=== PATIENT | female | born 1970 | race Caucasian/White ===

== ENCOUNTER 2023-04-26 18:23 | Observation (INO) ==
[2023-04-26 19:25] LABS: BILIRUBIN,URINE NEGATIVE (NEGATIVE); BLOOD/HEMOGLOBIN,URINE 1+ (NEGATIVE); GLUCOSE, URINE NEGATIVE (NEGATIVE); KETONES,URINE 4+ (NEGATIVE); LEUKOCYTE ESTERASE ,URINE NEGATIVE (NEGATIVE); NITRITES,URINE NEGATIVE (NEGATIVE); PH,URINE 6.5 (5.0 - 8.0); PROTEIN,URINE 2+ (NEGATIVE); UROBILINOGEN,URINE NORMAL (NORMAL)
[2023-04-26 19:32] LABS: APPEARANCE,URINE CLEAR (CLEAR); COLOR,URINE DARK YELLOW (YELLOW)
[2023-04-26 19:33] LABS: BACTERIA,URINE TRACE /HPF (NEGATIVE); RBC,URINE 0-2 /HPF (0-3); SQUAMOUS EPITHELIAL CELL,UR MODERATE /HPF (NEGATIVE)
--- NOTE | 2023-04-26 20:09 | DR.EXTPAIN ---
HPI Time seen Time Seen by Provider: 04/26/23 20:08 PCP Primary Care Physician: SHAHID LEZAMA Complaint/Symptoms Chief Complaint:: PT IN ED VIA WHEELCHAIR WITH C/O SHARP PAINS RIGHT LOWER SIDE. PT STATES PAIN STATES AT NAVEL AND RUNS TO RIGHT LOWER ABD. COVID-19 Coronavirus risk:travel/contact w/high risk person: No Has patient experienced Coronavirus symptoms: No Nurses notes reviewed Nurses Notes Review: Yes Source History Provided: Patient Mode of arrival Mode of Arrival: Wheelchair Timing Onset of Chief Complaint: 04/26/23 Context History of: None Associated signs and symptoms Associated Signs and Symptoms: Nausea PMH PMH Past Medical History: No Past Surgical History: Yes Surgical History: Hysterectomy Family History History of Family Medical Conditions: Yes Family Medical History: Diabetes Mellitus, [place], Coronary Artery Disease and Hypertension Social History Does patient currently use any type of tobacco product: No Have you used tobacco products in the last 12 months: No Type of Tobacco Use: None Does any household member use tobacco: No Alcohol Use: Occasionally Do you use any recreational Drugs:: No Lives With: Family Lives Where: Home Travel Risk Coronavirus risk:travel/contact w/high risk person: No Has patient experienced Coronavirus symptoms: No Infectious screening In the last 2 months have you had wt loss of >10#?: NO Have you had fever, night sweats or hemotysis?: No Have you traveled outside the country in the last 6 months?: No Isolation: Standard ROS Review of Systems Gastrointestinal/Abdominal: See HPI, Abdominal Pain and Nausea PE Vital Signs Vitals: Vital Signs Temperature 98.1 F Pulse Rate [Radial] 71 Pulse Rate 87 Respiratory Rate 20 Respiratory Rate 20 Respiratory Rate 20 Blood Pressure [Left Arm] 133/71 Blood Pressure 133/80 O2 Sat by Pulse Oximetry 99 O2 Sat by Pulse Oximetry 99 General Limitations: No Limitations General Appearance: Alert and In No Apparent Distress Head Head Exam: Normal Inspection Eyes Eye exam: Normal Appearance, PERRL and EOMI ENT ENT Exam: Normal Exam Neck Neck Exam: Normal Inspection Chest Chest Inspection: Normal Inspection Respiratory Respiratory Exam: Normal Lung Sounds Bilat Cardiovascular Cardiovascular Exam: Regular Rate Abdominal Exam Abdominal Exam: Normal Inspection, Normal Bowel Sounds and Soft Extremities Extremities Exam: Normal Inspection Back Back Exam: Normal Inspection Neurological Neurological Exam: Alert, Oriented X3, CN II-XII Intact, Normal Gait and Reflexes Normal Psychiatric Psychiatric Exam: Normal Affect and Normal Mood Skin Skin Exam: Warm, Dry and Intact COURSE Treatment Treatment: Labs, CT, Morphine, Zofran, Zosyn Reevaluation 1st: Improved ROR Labs Reviewed Laboratory Results Reviewed?: Yes 04/26/23 20:20 04/26/23 20:20 Laboratory: WBC 13.6 X10^3/uL (3.6-10.0) H 04/26/23 20:20 RBC 4.77 X10^6/uL (3.5-5.4) 04/26/23 20:20 Hgb 14.7 g/dL (12.0-16.0) 04/26/23 20:20 Hct 43.0 % (36.0-47.0) 04/26/23 20:20 MCV 90.2 fL (80.0-100.0) 04/26/23 20:20 MCH 30.9 pg (27.0-34.0) 04/26/23 20:20 MCHC 34.3 g/dL (33.0-35.0) 04/26/23 20:20 RDW 13.1 % (11.6-16.5) 04/26/23 20:20 Plt Count 185 X10^3/uL (150.0-450.0) 04/26/23 20:20 MPV 9.4 fL (7.4-11.0) 04/26/23 20:20 Neut % (Auto) 83.3 % (42.0-75.0) H 04/26/23 20:20 Lymph % (Auto) 8.1 % (21.0-51.0) L 04/26/23 20:20 [place] % (Auto) 8.3 % (0.0-13.0) 04/26/23 20:20 Eos % (Auto) 0.1 % (0.9-2.9) L 04/26/23 20:20 Baso % (Auto) 0.2 % (0.2-1.0) 04/26/23 20:20 Neut # (Auto) 11.3 x10^3/uL (2.2-4.8) H 04/26/23 20:20 Lymph # (Auto) 1.1 X10^3/uL (1.3-2.9) L 04/26/23 20:20 [place] # (Auto) 1.1 x10^3/uL (0.3-0.8) H 04/26/23 20:20 Eos # (Auto) 0.0 x10^3/uL (0.0-0.2) 04/26/23 20:20 Baso # (Auto) 0.0 X10^3/uL (0.0-0.1) 04/26/23 20:20 Absolute Nucleated RBC 0.1 /100WBC 04/26/23 20:20 Sodium 132 mmol/L (136-145) L 04/26/23 20:20 Corrected Sodium 132 mmol/L (136-145) L 04/26/23 20:20 Potassium 4.1 mmol/L (3.5-5.1) 04/26/23 20:20 Chloride 98 mmol/L (98-107) 04/26/23 20:20 Carbon Dioxide 27.5 mmol/L (21-32) 04/26/23 20:20 BUN 6 mg/dL (7-18) L 04/26/23 20:20 Creatinine 0.65 mg/dL (0.55-1.02) 04/26/23 20:20 Est GFR (MDRD) Af Amer > 60 (>60) 04/26/23 20:20 Est GFR (MDRD) Non-Af > 60 (>60) 04/26/23 20:20 Glucose 115 mg/dL (65-99) H 04/26/23 20:20 Calcium 8.4 mg/dL (8.5-10.1) L 04/26/23 20:20 Corrected Calcium TNP 04/26/23 20:20 Total Bilirubin 1.30 mg/dL (0.2-1.0) H 04/26/23 20:20 AST 39 Units/L (15-37) H 04/26/23 20:20 ALT 27 Units/L (12-78) 04/26/23 20:20 Alkaline Phosphatase 77 Units/L (46-116) 04/26/23 20:20 Total Protein 7.6 g/dL (6.4-8.2) 04/26/23 20:20 Albumin 3.7 g/dL (3.4-5.0) 04/26/23 20:20 Globulin 3.9 g/dL (2.5-4.5) 04/26/23 20:20 Albumin/Globulin Ratio 0.9 Ratio (1.1-2.1) L 04/26/23 20:20 Specimen Type Clean catch urine 04/26/23 19:20 Urine Color Dark yellow (YELLOW) 04/26/23 19:20 Urine Appearance Clear (CLEAR) 04/26/23 19:20 Urine pH 6.5 (5.0 - 8.0) 04/26/23 19:20 Ur Specific [place] 1.010 (1.000-1.030) 04/26/23 19:20 Urine Protein 2+ (NEGATIVE) 04/26/23 19:20 Urine Glucose (UA) Negative (NEGATIVE) 04/26/23 19:20 Urine Ketones 4+ (NEGATIVE) 04/26/23 19:20 Urine Blood 1+ (NEGATIVE) 04/26/23 19:20 Urine Nitrite Negative (NEGATIVE) 04/26/23 19:20 Urine Bilirubin Negative (NEGATIVE) 04/26/23 19:20 Urine Urobilinogen Normal (NORMAL) 04/26/23 19:20 Ur Leukocyte Esterase Negative (NEGATIVE) 04/26/23 19:20 Urine RBC 0-2 /HPF (0-3) 04/26/23 19:20 Urine WBC 0-2 /HPF (0-5) 04/26/23 19:20 Ur Squamous Epith Cells Moderate /HPF (NEGATIVE) 04/26/23 19:20 Urine Bacteria Trace /HPF (NEGATIVE) 04/26/23 19:20 Urine Mucus Few /HPF (NEGATIVE) 04/26/23 19:20 Ur Culture Indicated? No/not indicated 04/26/23 19:20 XRAY XRAY Interpreted by: Radiologist Opioid Opioid Risk Tool Age (Ankur box if 16-45): No History of Preadolescent Sexual Abuse: No Total: 0 Total Score Risk Category: Low Risk Copyright: Bandar [place] predicting aberrant behaviors Discharge Plan Diagnosis Discharge Problem: Acute appendicitis Discharge Plan Patient Disposition: 01 HOME, SELF-CARE Condition: Stable Prescriptions: No Action estradiol 0.1 mg/24 hr patch semiweekly 1 patch transdermal 2XW Discharge Comment: The patient will be admitted to [facility] Concerns: Post Hospitalization: new medications and changes needed to prevent readmission or further decline. Pt educated and given instructions on all concerns. Plan of Treatment: Continue with present treatment and follow up plan. Pt is to keep follow up appointment as instructed and take medications as ordered. Orders to Discharge Patient Discharge Orders: Discharge (Routine); Ordered 04/26/23 Ordered By: Jared Farnsworth Follow ups/Referrals Follow ups/Referrals: NFD,None [Primary Care Provider] - 3 days Instructions Stand Alone Forms: Post Hospital Follow Up Care
[2023-04-26] MEDS ORDERED: MORPHINE SULFATE INJ 4 MG IVP ONE ×2 (20:12→21:44)
[2023-04-26] MEDS ORDERED: ZOFRAN INJ 4 MG VIAL IVP ONE (20:12)
[2023-04-26] MEDS ORDERED: MORPHINE SULFATE INJ 4 MG ONE ×2 (20:15→21:45)
[2023-04-26] MEDS ORDERED: ZOFRAN INJ 4 MG VIAL ONE (20:15)
[2023-04-26] MEDS ORDERED: OMNIPAQUE 350 mg/mL 100 mL BTL 100 ML ONE (20:23)
[2023-04-26 20:30] LABS: BASOPHILS % (AUTO) 0.2 % (0.2-1.0); EOSINOPHILS % (AUTO) 0.1 % (0.9-2.9); HEMOGLOBIN 14.7 g/dL (12.0-16.0); LYMPHOCYTES # (AUTO) 1.1 X10^3/uL (1.3-2.9); LYMPHOCYTES % (AUTO) 8.1 % (21.0-51.0); MEAN CORPUSCULAR HEMOGLOBIN 30.9 pg (27.0-34.0); MEAN CORPUSCULAR HGB CONC 34.3 g/dL (33.0-35.0); MEAN CORPUSCULAR VOLUME 90.2 fL (80.0-100.0); MEAN PLATELET VOLUME 9.4 fL (7.4-11.0); MONOCYTES # (AUTO) 1.1 x10^3/uL (0.3-0.8); MONOCYTES % (AUTO) 8.3 % (0.0-13.0); NEUTROPHILS # (AUTO) 11.3 x10^3/uL (2.2-4.8); NEUTROPHILS % (AUTO) 83.3 % (42.0-75.0); PLATELET COUNT 185 X10^3/uL (150.0-450.0); RED BLOOD COUNT 4.77 X10^6/uL (3.5-5.4); RED CELL DISTRIBUTION WIDTH 13.1 % (11.6-16.5); WHITE BLOOD COUNT 13.6 X10^3/uL (3.6-10.0)
[2023-04-26 20:38] LABS: ALANINE AMINOTRANSFERASE 27 Units/L (12-78); ALBUMIN 3.7 g/dL (3.4-5.0); ALKALINE PHOSPHATASE 77 Units/L (46-116); ASPARTATE AMINO TRANSFERASE 39 Units/L (15-37); BLOOD UREA NITROGEN 6 mg/dL (7-18); CALCIUM 8.4 mg/dL (8.5-10.1); CARBON DIOXIDE 27.5 mmol/L (21-32); CHLORIDE 98 mmol/L (98-107); COR NA(FOR HYPERGLY) 132 mmol/L (136-145); CREATININE 0.65 mg/dL (0.55-1.02); GLUCOSE 115 mg/dL (65-99); POTASSIUM 4.1 mmol/L (3.5-5.1); SODIUM 132 mmol/L (136-145); TOTAL PROTEIN 7.6 g/dL (6.4-8.2); eGFR NON BLACK RACES > 60 (>60)
--- NOTE | 2023-04-26 21:20 | CT ---
EXAM:ABDCMEN/PELVIS WITH CONHISTORY:right sided abd pains; hysterectomyCOMPARISON:None.TECHNIQUE:Fo llowing the intravenous administration of iodinated contrast, spiral CT imaging was performed through the abdomen and pelvis and axial, coronal, and sagittal CT images were generated.FINDINGS:The lung bases are clear without effusion. Heart size is normal. Liver, gallbladder, pancreas, spleen, adrenal glands are normal. The kidneys are normal in size and enhancement. The stomach is normal. The small bowel loops are normal. The appendix is abnormally dilated at 1.7 cm diameter and there is an appendicolith in the appendix. There is inflammation of the fat surrounding the appendix. The large bowel loops are grossly unremarkable. The urinary bladder is normal. There is some trace free fluid in the pelvis. There is approximately 13 degrees of dextroscoliosis in the lumbar spine.IMPRESSION:Acute appendicitis.THIS IS AN ELECTRONICALLY VERIFIED FINAL [id number]/26/2023 9:17 PM - Electronically signed by Gary Jin MD
[2023-04-26] MEDS ORDERED: NS 100 ML IV 100 ML ONE (21:33)
[2023-04-26] MEDS ORDERED: ZOSYN VIAL 4.5 GRAMS IV ONE (21:33)
[2023-04-26] MEDS ORDERED: NS 1,000 ML IV 1,000 ML IV ONE (21:34)
[2023-04-26] MEDS ORDERED: NS 1,000 ML IV 1,000 ML ONE (21:39)
[2023-04-26] MEDS: ZOSYN VIAL 4.5 GRAMS 4.5 G in NS 100 ML IV 100 ML IV SCH ×2 (21:43→23:59)
[2023-04-26 23:35] VITALS: BMI 26.1
[2023-04-27] MEDS: DILAUDID INJ IVP PRN ×5 (00:55→13:45)
[2023-04-27] MEDS ORDERED: HIBICLENS WASH ONE (02:36)
[2023-04-27] MEDS ORDERED: HIBICLENS WASH EXT ONE (06:00)
[2023-04-27] MEDS: ZOFRAN INJ 4 MG VIAL IVP PRN ×3 (06:22→19:05)
[2023-04-27] MEDS: ZOSYN VIAL 4.5 GRAMS 4.5 G in NS 100 ML IV 100 ML IV SCH (06:33)
[2023-04-27] MEDS ORDERED: ZANAFLEX PO PRN (09:08)
--- NOTE | 2023-04-27 09:21 | DR.H&P ---
H&P History & Physical for Day of: H&P Date: 04/26/23 Chief Complaint Chief Complaint: right lower quadrant pain Allergies Allergies Allergy/AdvReac Type Severity Reaction Status Date / Time No Known Allergies Allergy Verified 04/26/23 19:11 History of Present Illness History of Present Illness: 52 yo female with acute onset of right lower quadrant pain with nausea and vomiting the morning of admission. Otherwise healthy. CT in ER consistent with acute appendicitis without rupture. Past Surgical History Surgical History: Hysterectomy Family History Family Medical History: Diabetes Mellitus, [place], Coronary Artery Disease and Hypertension Social History Does patient currently use any type of tobacco product: No Have you used tobacco products in the last 12 months: No Type of Tobacco Use: None Does any household member use tobacco: No Alcohol Use: None Drug Use: None Medications Home Medications: Home Medications Medication Instructions Recorded Confirmed Type estradiol 0.1 mg/24 hr semiweekly 1 patch transdermal 2XW 04/26/23 04/26/23 History transdermal patch Labs 04/26/23 20:20 04/26/23 20:20 Labs: Laboratory WBC 13.6 X10^3/uL (3.6-10.0) H 04/26/23 20:20 RBC 4.77 X10^6/uL (3.5-5.4) 04/26/23 20:20 Hgb 14.7 g/dL (12.0-16.0) 04/26/23 20:20 Hct 43.0 % (36.0-47.0) 04/26/23 20:20 MCV 90.2 fL (80.0-100.0) 04/26/23 20:20 MCH 30.9 pg (27.0-34.0) 04/26/23 20:20 MCHC 34.3 g/dL (33.0-35.0) 04/26/23 20:20 RDW 13.1 % (11.6-16.5) 04/26/23 20:20 Plt Count 185 X10^3/uL (150.0-450.0) 04/26/23 20:20 MPV 9.4 fL (7.4-11.0) 04/26/23 20:20 Neut % (Auto) 83.3 % (42.0-75.0) H 04/26/23 20:20 Lymph % (Auto) 8.1 % (21.0-51.0) L 04/26/23 20:20 [place] % (Auto) 8.3 % (0.0-13.0) 04/26/23 20:20 Eos % (Auto) 0.1 % (0.9-2.9) L 04/26/23 20:20 Baso % (Auto) 0.2 % (0.2-1.0) 04/26/23 20:20 Neut # (Auto) 11.3 x10^3/uL (2.2-4.8) H 04/26/23 20:20 Lymph # (Auto) 1.1 X10^3/uL (1.3-2.9) L 04/26/23 20:20 [place] # (Auto) 1.1 x10^3/uL (0.3-0.8) H 04/26/23 20:20 Eos # (Auto) 0.0 x10^3/uL (0.0-0.2) 04/26/23 20:20 Baso # (Auto) 0.0 X10^3/uL (0.0-0.1) 04/26/23 20:20 Absolute Nucleated RBC 0.1 /100WBC 04/26/23 20:20 Sodium 132 mmol/L (136-145) L 04/26/23 20:20 Corrected Sodium 132 mmol/L (136-145) L 04/26/23 20:20 Potassium 4.1 mmol/L (3.5-5.1) 04/26/23 20:20 Chloride 98 mmol/L (98-107) 04/26/23 20:20 Carbon Dioxide 27.5 mmol/L (21-32) 04/26/23 20:20 BUN 6 mg/dL (7-18) L 04/26/23 20:20 Creatinine 0.65 mg/dL (0.55-1.02) 04/26/23 20:20 Est GFR (MDRD) Af Amer > 60 (>60) 04/26/23 20:20 Est GFR (MDRD) Non-Af > 60 (>60) 04/26/23 20:20 Glucose 115 mg/dL (65-99) H 04/26/23 20:20 Calcium 8.4 mg/dL (8.5-10.1) L 04/26/23 20:20 Corrected Calcium TNP 04/26/23 20:20 Total Bilirubin 1.30 mg/dL (0.2-1.0) H 04/26/23 20:20 AST 39 Units/L (15-37) H 04/26/23 20:20 ALT 27 Units/L (12-78) 04/26/23 20:20 Alkaline Phosphatase 77 Units/L (46-116) 04/26/23 20:20 Total Protein 7.6 g/dL (6.4-8.2) 04/26/23 20:20 Albumin 3.7 g/dL (3.4-5.0) 04/26/23 20:20 Globulin 3.9 g/dL (2.5-4.5) 04/26/23 20:20 Albumin/Globulin Ratio 0.9 Ratio (1.1-2.1) L 04/26/23 20:20 Specimen Type Clean catch urine 04/26/23 19:20 Urine Color Dark yellow (YELLOW) 04/26/23 19:20 Urine Appearance Clear (CLEAR) 04/26/23 19:20 Urine pH 6.5 (5.0 - 8.0) 04/26/23 19:20 Ur Specific [place] 1.010 (1.000-1.030) 04/26/23 19:20 Urine Protein 2+ (NEGATIVE) 04/26/23 19:20 Urine Glucose (UA) Negative (NEGATIVE) 04/26/23 19:20 Urine Ketones 4+ (NEGATIVE) 04/26/23 19:20 Urine Blood 1+ (NEGATIVE) 04/26/23 19:20 Urine Nitrite Negative (NEGATIVE) 04/26/23 19:20 Urine Bilirubin Negative (NEGATIVE) 04/26/23 19:20 Urine Urobilinogen Normal (NORMAL) 04/26/23 19:20 Ur Leukocyte Esterase Negative (NEGATIVE) 04/26/23 19:20 Urine RBC 0-2 /HPF (0-3) 04/26/23 19:20 Urine WBC 0-2 /HPF (0-5) 04/26/23 19:20 Ur Squamous Epith Cells Moderate /HPF (NEGATIVE) 04/26/23 19:20 Urine Bacteria Trace /HPF (NEGATIVE) 04/26/23 19:20 Urine Mucus Few /HPF (NEGATIVE) 04/26/23 19:20 Ur Culture Indicated? No/not indicated 04/26/23 19:20 Review of Systems Constitutional: See HPI Eyes: No Symptoms Reported ENT: No Symptoms Reported Respiratory: No Symptoms Reported Cardiovascular: No Symptoms Reported Gastrointestinal: No Symptoms Reported Genitourinary: No Symptoms Reported Musculoskeletal: No Symptoms Reported Skin: No Symptoms Reported Neurological: No Symptoms Reported Physical Exam Vital Signs: Vital Signs Temperature 98.9 F Pulse Rate [Radial] 89 Respiratory Rate 18 Respiratory Rate 18 Respiratory Rate 18 Respiratory Rate 18 Blood Pressure [Left Arm] 123/63 O2 Sat by Pulse Oximetry 97 Oriented: Normal, Time, Person and Place Eyes: Normal Ear: Normal Nose: Normal Throat: Normal Respiratory: Clear Throughout Cardiovascular: Normal : Normal Auscultation: Bowel Sounds: Normal Palpation: Other (right lower quadrant tenderness with mild rebound) Tenderness: RLQ Skin: Normal Musculoskeletal: Normal Psychiatric: Normal Mood Description: Anxious Affect: Anxious Speech Pattern: Clear Assessment/Plan (1) Acute appendicitis: Status: Acute Plan: Iv antibiotics tonight. Plan laparoscopic appendectomy in AM. Risks and benefits discussed including bleeding, infection, and possibility of conversion to open appendectomy Review H&P Reviewed: Yes Patient was examined?: Yes
[2023-04-27] MEDS ORDERED: ZOFRAN INJ 4 MG VIAL IVP ONE (09:32)
[2023-04-27] MEDS ORDERED: BARHEMSYS INJ ONE (11:51)
[2023-04-27] MEDS ORDERED: LR 1,000 ML IV 1,000 ML IV ONE (11:53)
[2023-04-27] MEDS ORDERED: ANCEF VIAL 1 GRAM ONE (11:53)
[2023-04-27] MEDS ORDERED: NS 100 ML IV 100 ML ONE (11:54)
[2023-04-27] MEDS ORDERED: VERSED ONE (11:59)
[2023-04-27] MEDS ORDERED: FENTANYL VIAL INJ 250 mcg ONE (11:59)
[2023-04-27] MEDS ORDERED: DIPRIVAN VIAL 20 ML ONE (12:00)
[2023-04-27] MEDS ORDERED: XYLOCAINE 2 % (PLAIN) ONE (12:00)
[2023-04-27] MEDS ORDERED: QUELICIN (OR ANECTINE) ONE (12:02)
[2023-04-27] MEDS ORDERED: ZEMURON 100 MG VIAL ONE (12:02)
[2023-04-27] MEDS ORDERED: MARCAINE 0.5% ONE (12:13)
[2023-04-27] MEDS ORDERED: SUPRANE ONE (12:23)
[2023-04-27] MEDS ORDERED: OFIRMEV IV 1000 MG VIAL 1,000 MG/100 ML VIAL IV ONE (12:42)
[2023-04-27] MEDS ORDERED: BRIDION ONE (12:53)
--- NOTE | 2023-04-27 13:17 | OR.IMMED ---
IMMEDIATE POST-OP NOTE Immediate Post-Op Note Date of surgery/procedure: 04/27/23 Pre-Op Diagnosis: acute appendicitis Post-Op Diagnosis: same Procedure: laparoscopic appendectomy Description of Procedure: see dictation Surgeon/Legal Financial Specialist: Ana M Findings: acute appendicitis Estimated Blood Loss: minimal Drains: Anant Logan (#10) Complications: none Progress Notes: return to floor, po pain meds and po antibiotics, D/C ater today or in AM
[2023-04-27] MEDS ORDERED: REGLAN INJ 10 MG VIAL IVP PRN (13:28)
[2023-04-27] MEDS ORDERED: BARHEMSYS INJ IVP PRN (13:28)
[2023-04-27] MEDS ORDERED: ZOFRAN INJ 4 MG VIAL IVP PRN (13:28)
[2023-04-27] MEDS ORDERED: BENADRYL INJ 50 MG VIAL IVP PRN (13:28)
[2023-04-27] MEDS ORDERED: DILAUDID INJ ONE (13:37)
[2023-04-27] MEDS: PERCOCET TAB 5/325 MG PO PRN ×2 (18:33→22:56)
[2023-04-27] MEDS: CIPRO TAB 500 MG PO SCH (21:37)
[2023-04-28 03:31] VITALS: RESP 20
[2023-04-28] MEDS: PERCOCET TAB 5/325 MG PO PRN ×2 (04:00→09:50)
[2023-04-28 06:24] LABS: BASOPHILS % (AUTO) 0.2 % (0.2-1.0); HEMATOCRIT 35.7 % (36.0-47.0); HEMOGLOBIN 12.2 g/dL (12.0-16.0); LYMPHOCYTES # (AUTO) 0.9 X10^3/uL (1.3-2.9); LYMPHOCYTES % (AUTO) 6.6 % (21.0-51.0); MEAN CORPUSCULAR HEMOGLOBIN 30.7 pg (27.0-34.0); MEAN CORPUSCULAR HGB CONC 34.1 g/dL (33.0-35.0); MEAN CORPUSCULAR VOLUME 90.2 fL (80.0-100.0); MEAN PLATELET VOLUME 9.4 fL (7.4-11.0); MONOCYTES % (AUTO) 7.6 % (0.0-13.0); NEUTROPHILS # (AUTO) 11.6 x10^3/uL (2.2-4.8); NEUTROPHILS % (AUTO) 85.6 % (42.0-75.0); PLATELET COUNT 172 X10^3/uL (150.0-450.0); RED BLOOD COUNT 3.96 X10^6/uL (3.5-5.4); RED CELL DISTRIBUTION WIDTH 13.1 % (11.6-16.5); WHITE BLOOD COUNT 13.6 X10^3/uL (3.6-10.0)
--- NOTE | 2023-04-28 09:07 | W.DIS.FURT ---
Summary of Discharge Discharge Summary of Date Date of Exam: 04/28/23 Admission Date Date of Admission: 04/26/23 Admission Diagnosis Patient Problems (Updated 04/26/23 @ 21:41 by Jared Farnsworth) Acute appendicitis (Acute) K35.80 Hospital Course: 52 yo female presented with RLQ pain . CT consistent with acute appendicitis. Started on IV antibiotics and the the next AM underwent uncomplicated laparo scopic appendectomy. Has drain in place.Will d/c today with prescriptions for Cipro 500 mg BID x 1 weeks and Percocet 5 mg i po q6 hr PRN pain, # 20 . Instruct how to care for drain.F/U next week. Vital Signs: Vital Signs (72 hours) 04/26/23 18:37 04/26/23 20:25 04/26/23 20:23 Temperature 98.1 F Pulse Rate 87 Pulse Rate [Radial] 71 Respiratory Rate 20 20 20 Blood Pressure 133/80 Blood Pressure [Left Arm] 133/71 O2 Sat by Pulse Oximetry 99 99 Oxygen Delivery Method Room Air Room Air 04/26/23 21:50 04/26/23 22:00 04/26/23 22:40 Temperature Pulse Rate Pulse Rate [Radial] 87 Respiratory Rate 20 16 Blood Pressure Blood Pressure [Left Arm] 146/75 O2 Sat by Pulse Oximetry 100 Oxygen Delivery Method Room Air Room Air 04/27/23 00:55 04/27/23 00:00 04/27/23 01:25 Temperature 98.6 F Pulse Rate Pulse Rate [Radial] 88 Respiratory Rate 18 22 18 Blood Pressure Blood Pressure [Left Arm] 104/52 O2 Sat by Pulse Oximetry 100 Oxygen Delivery Method Room Air 04/27/23 04:00 04/27/23 06:22 04/27/23 06:52 Temperature 98.9 F Pulse Rate Pulse Rate [Radial] 89 Respiratory Rate 18 18 18 Blood Pressure Blood Pressure [Left Arm] 123/63 O2 Sat by Pulse Oximetry 97 Oxygen Delivery Method Room Air 04/27/23 10:11 04/27/23 08:00 04/27/23 07:00 Temperature 98.8 F Pulse Rate Pulse Rate [Radial] 78 Respiratory Rate 18 18 Blood Pressure Blood Pressure [Left Arm] 99/54 O2 Sat by Pulse Oximetry 96 Oxygen Delivery Method Room Air Room Air 04/27/23 10:41 04/27/23 13:20 04/27/23 13:25 Temperature 97.1 F L Pulse Rate 78 76 Pulse Rate [Radial] Respiratory Rate 18 16 16 Blood Pressure 121/60 102/53 Blood Pressure [Left Arm] O2 Sat by Pulse Oximetry 99 99 Oxygen Delivery Method Aerosol Face Tent Aerosol Face Tent 04/27/23 13:35 04/27/23 13:40 04/27/23 13:30 Temperature Pulse Rate 73 82 79 Pulse Rate [Radial] Respiratory Rate 17 18 17 Blood Pressure 103/56 106/58 105/53 Blood Pressure [Left Arm] O2 Sat by Pulse Oximetry 99 95 99 Oxygen Delivery Method Room Air Room Air Aerosol Face Tent 04/27/23 13:45 04/27/23 13:40 04/27/23 13:45 Temperature Pulse Rate 76 Pulse Rate [Radial] Respiratory Rate 18 18 18 Blood Pressure 106/57 Blood Pressure [Left Arm] O2 Sat by Pulse Oximetry 95 Oxygen Delivery Method Room Air 04/27/23 13:50 04/27/23 14:10 04/27/23 14:15 Temperature Pulse Rate 75 Pulse Rate [Radial] Respiratory Rate 17 18 18 Blood Pressure 104/55 Blood Pressure [Left Arm] O2 Sat by Pulse Oximetry 96 Oxygen Delivery Method Room Air 04/27/23 14:00 04/27/23 14:15 04/27/23 14:30 Temperature 97.5 F L 97.0 F L 97.0 F L Pulse Rate Pulse Rate [Radial] 76 73 71 Respiratory Rate 18 18 18 Blood Pressure Blood Pressure [Left Arm] 109/55 111/61 114/62 O2 Sat by Pulse Oximetry 96 91 L 93 L Oxygen Delivery Method Room Air Room Air Room Air 04/27/23 14:45 04/27/23 15:00 04/27/23 16:00 Temperature 97.4 F L 97.4 F L 97.5 F L Pulse Rate Pulse Rate [Radial] 74 82 83 Respiratory Rate 18 18 18 Blood Pressure Blood Pressure [Left Arm] 115/62 132/74 114/53 O2 Sat by Pulse Oximetry 97 96 97 Oxygen Delivery Method Room Air Room Air Room Air 04/27/23 17:00 04/27/23 18:00 04/27/23 18:33 Temperature 98.0 F 98.0 F Pulse Rate Pulse Rate [Radial] 84 86 Respiratory Rate 18 18 18 Blood Pressure Blood Pressure [Left Arm] 114/57 126/65 O2 Sat by Pulse Oximetry 94 L 97 Oxygen Delivery Method Room Air Room Air 04/27/23 22:56 04/27/23 19:00 04/27/23 20:00 Temperature 99.8 F H Pulse Rate Pulse Rate [Radial] 93 H Respiratory Rate 18 20 Blood Pressure Blood Pressure [Left Arm] 119/61 O2 Sat by Pulse Oximetry 97 Oxygen Delivery Method Room Air 04/28/23 00:00 04/27/23 19:33 04/27/23 23:56 Temperature 98.9 F Pulse Rate Pulse Rate [Radial] 92 H Respiratory Rate 20 18 18 Blood Pressure Blood Pressure [Left Arm] 114/58 O2 Sat by Pulse Oximetry 96 Oxygen Delivery Method 04/28/23 04:00 04/28/23 04:00 04/28/23 05:00 Temperature 98.2 F Pulse Rate Pulse Rate [Radial] 91 H Respiratory Rate 20 20 20 Blood Pressure Blood Pressure [Left Arm] 124/73 O2 Sat by Pulse Oximetry 99 Oxygen Delivery Method Labs: Laboratory Last Values WBC 13.6 X10^3/uL (3.6-10.0) H 04/28/23 05:50 RBC 3.96 X10^6/uL (3.5-5.4) 04/28/23 05:50 Hgb 12.2 g/dL (12.0-16.0) D 04/28/23 05:50 Hct 35.7 % (36.0-47.0) L 04/28/23 05:50 MCV 90.2 fL (80.0-100.0) 04/28/23 05:50 MCH 30.7 pg (27.0-34.0) 04/28/23 05:50 MCHC 34.1 g/dL (33.0-35.0) 04/28/23 05:50 RDW 13.1 % (11.6-16.5) 04/28/23 05:50 Plt Count 172 X10^3/uL (150.0-450.0) 04/28/23 05:50 MPV 9.4 fL (7.4-11.0) 04/28/23 05:50 Neut % (Auto) 85.6 % (42.0-75.0) H 04/28/23 05:50 Lymph % (Auto) 6.6 % (21.0-51.0) L 04/28/23 05:50 [place] % (Auto) 7.6 % (0.0-13.0) 04/28/23 05:50 Eos % (Auto) 0.0 % (0.9-2.9) L 04/28/23 05:50 Baso % (Auto) 0.2 % (0.2-1.0) 04/28/23 05:50 Neut # (Auto) 11.6 x10^3/uL (2.2-4.8) H 04/28/23 05:50 Lymph # (Auto) 0.9 X10^3/uL (1.3-2.9) L 04/28/23 05:50 [place] # (Auto) 1.0 x10^3/uL (0.3-0.8) H 04/28/23 05:50 Eos # (Auto) 0.0 x10^3/uL (0.0-0.2) 04/28/23 05:50 Baso # (Auto) 0.0 X10^3/uL (0.0-0.1) 04/28/23 05:50 Absolute Nucleated RBC 0.0 /100WBC 04/28/23 05:50 Sodium 132 mmol/L (136-145) L 04/26/23 20:20 Corrected Sodium 132 mmol/L (136-145) L 04/26/23 20:20 Potassium 4.1 mmol/L (3.5-5.1) 04/26/23 20:20 Chloride 98 mmol/L (98-107) 04/26/23 20:20 Carbon Dioxide 27.5 mmol/L (21-32) 04/26/23 20:20 BUN 6 mg/dL (7-18) L 04/26/23 20:20 Creatinine 0.65 mg/dL (0.55-1.02) 04/26/23 20:20 Est GFR (MDRD) Af Amer > 60 (>60) 04/26/23 20:20 Est GFR (MDRD) Non-Af > 60 (>60) 04/26/23 20:20 Glucose 115 mg/dL (65-99) H 04/26/23 20:20 Calcium 8.4 mg/dL (8.5-10.1) L 04/26/23 20:20 Corrected Calcium TNP 04/26/23 20:20 Total Bilirubin 1.30 mg/dL (0.2-1.0) H 04/26/23 20:20 AST 39 Units/L (15-37) H 04/26/23 20:20 ALT 27 Units/L (12-78) 04/26/23 20:20 Alkaline Phosphatase 77 Units/L (46-116) 04/26/23 20:20 Total Protein 7.6 g/dL (6.4-8.2) 04/26/23 20:20 Albumin 3.7 g/dL (3.4-5.0) 04/26/23 20:20 Globulin 3.9 g/dL (2.5-4.5) 04/26/23 20:20 Albumin/Globulin Ratio 0.9 Ratio (1.1-2.1) L 04/26/23 20:20 Specimen Type Clean catch urine 04/26/23 19:20 Urine Color Dark yellow (YELLOW) 04/26/23 19:20 Urine Appearance Clear (CLEAR) 04/26/23 19:20 Urine pH 6.5 (5.0 - 8.0) 04/26/23 19:20 Ur Specific [place] 1.010 (1.000-1.030) 04/26/23 19:20 Urine Protein 2+ (NEGATIVE) 04/26/23 19:20 Urine Glucose (UA) Negative (NEGATIVE) 04/26/23 19:20 Urine Ketones 4+ (NEGATIVE) 04/26/23 19:20 Urine Blood 1+ (NEGATIVE) 04/26/23 19:20 Urine Nitrite Negative (NEGATIVE) 04/26/23 19:20 Urine Bilirubin Negative (NEGATIVE) 04/26/23 19:20 Urine Urobilinogen Normal (NORMAL) 04/26/23 19:20 Ur Leukocyte Esterase Negative (NEGATIVE) 04/26/23 19:20 Urine RBC 0-2 /HPF (0-3) 04/26/23 19:20 Urine WBC 0-2 /HPF (0-5) 04/26/23 19:20 Ur Squamous Epith Cells Moderate /HPF (NEGATIVE) 04/26/23 19:20 Urine Bacteria Trace /HPF (NEGATIVE) 04/26/23 19:20 Urine Mucus Few /HPF (NEGATIVE) 04/26/23 19:20 Ur Culture Indicated? No/not indicated 04/26/23 19:20 Reason For Visit: ACUTE APPENDICITIS Discharge Date Discharge Date: 04/28/23 Discharge Diagnosis All Active Problems (Updated 04/26/23 @ 21:41 by Jared Farnsworth) Acute appendicitis (Acute) Plan of Treatment: Continue with present treatment and follow up plan. Pt is to keep follow up appointment as instructed and take medications as ordered. Discharge Medications Discharge Medications: No Known Allergies Allergy (Verified 04/26/23 19:11) CONTINUE taking the following medications estradiol 0.1 mg/24 hr semiweekly transdermal patch 1 patch transdermal 2XW 04/26/23 [History] Discharge Disposition Assessment: see hospital course Discharge Plan Discharge Plan Hospital Course: 52 yo female presented with RLQ pain . CT consistent with acute appendicitis. Started on IV antibiotics and the the next AM underwent uncomplicated laparoscopic appendectomy. Has drain in place.Will d/c today with prescriptions for Cipro 500 mg BID x 1 weeks and Percocet 5 mg i po q6 hr PRN pain, # 20 . Instruct how to care for drain.F/U next week. Patient Disposition: 01 HOME, SELF-CARE Condition: Stable Health Concerns: Post Hospitalization: new medications and changes needed to prevent readmission or further decline. Pt educated and given instructions on all concerns. Care Plan Goals: Problem: Pain/Alteration in Comfort Goal: Improve/ Resolve Pain; Achieve Pain Tolerance Instructions: Take pain medications as prescribed. Contact your primary care provider if your pain is unrelieved or worsens. Follow up with primary care provider as directed. Plan of Treatment: Continue with present treatment and follow up plan. Pt is to keep follow up appointment as instructed and take medications as ordered. Assessment: see hospital course Prescription drug monitoring program results: PDMP was not reviewed Prescriptions: New ciprofloxacin HCl [Cipro] 500 mg tablet 500 mg PO BID Qty: 14 0RF oxycodone-acetaminophen [Percocet] 5-325 mg tablet 1 tab PO Q6H MDD 4 PRNQty: 20 0RF Continued estradiol 0.1 mg/24 hr patch semiweekly 1 patch transdermal 2XW Orders to Discharge Patient Discharge Orders: Discharge (Routine); Ordered 04/28/23 Ordered By: Binh Viramontes Follow ups/Referrals Follow ups/Referrals: Binh Viramontes [STAFF PHYSICIAN] - 05/05/23 1:30 pm Instructions Instructions: Form - Surgical Drain Record, Laparoscopic Appendectomy, Adult, Care After, [id number], Appendicitis, Adult, [id number], Surgical Drain Home Care Stand Alone Forms: Excuse From Work or School, Post Hospital Follow Up Care
[2023-04-28] MEDS: CIPRO TAB 500 MG PO SCH (10:21)
[2023-04-28 10:59] VITALS: BP 128/68; PULSE 81; TEMP 97.4; O2SAT 99
--- NOTE | 2023-04-28 18:31 | DR.OPNOTE ---
OP NOTE Pre-Op Diagnosis: acute appendicitis Post-Op Diagnosis: same Procedure Date Date Of Procedure: 04/27/23 Procedure: PROCEDURE : LAPAROSCOPIC APPENDECTOMY NARRATIVE : The patient was taken to the operative suite and placed in the Supine position. General endotracheal anesthesia induced and the entire abdomen was prepped and draped in sterile fashion. Time out for the procedure obtained . A 5 mm incision was made lateral to the left rectus sheath online with the umbilicus and a 5 mm Optical trocar placed into the abdominal cavity. Abdomen was insufflated to 15 mm of mercury with carbon dioxide and under direct vision a 5mm trocar placed in the midline above the pubic tubercles and a 12 mm trocar placed in the left lower quadrant. The appendix was acutely inflamed and adherent to the right colon heading towards the gallbladder along the right colonic gutter. This was freed up bluntly. There was no evidence of rupture. The base of the appendix divided with one fire of the endoscopic JOE stapler and the mesentery divided with two fires of vascular loads of the endoscopic JOE stapler . The appendix was placed in a specimen bag and brought out through the left lower quadrant trocar site. Trocars were replaced and the abdomen irrigated and suctioned free. A flat number 10 Anant Logan drain was placed in the abdomen along the cecum and brought out through the supra pubic trocar site. This drain was secured to the skin with a 2-0 silk suture ligature . All incisions than closed with subcutaneous interrupted 3-0 Vicryl sutures . A total of 20 cc's of 0.5% Marcaine was distributed between the three laparoscopic incisions. The patient was extubated and taken to back to PACU in good condition. Type of Anesthesia: General Anesthetic w/ETT Findings: acute appendicitis, no evidence of rupture Specimen/Pathology: appendix Type of Fluids Used:: Lactated Ringers EBL: minimal Drains/Tubes Placed: Anant Logan (#10 ) Complications:: none Needle/Sponge Count:: correct Disposition/Condition: Pt. tolerated procedure without difficulty. Extubated in the OR and taken to PACU in stable condition.
== END 2023-04-28 11:13 | disposition home or self-care (01) ==
LOC: MED/SURG 18:23 → ER 18:23 → MED/SURG 23:08
PROVIDERS: ADMIT Surgery; ATTEND Surgery
PROC: APPYLAP (ICD-10-PCS; 2023-04-27 15:25)
DX: R11.2 Nausea with vomiting, unspecified; E87.1 Hypo-osmolality and hyponatremia; R10.31 Right lower quadrant pain; K35.890 Other acute appendicitis without perforation or gangrene